=== PATIENT | male | born 2000 | race Two or more races ===

== ENCOUNTER 2025-10-05 17:50 | Emergency (ER) | payer MEDICAID, SELFPAY ==
[2025-10-05 17:51] VITALS: BMI 40.3
[2025-10-05 18:23] VITALS: BP 134/77; PULSE 90; RESP 18; TEMP 36.9; O2SAT 98
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
== END 2025-10-05 21:39 | disposition home or self-care (01) ==
PROVIDERS: Emergency Provider Emergency Medicine
DX: T14.8XXA Other injury of unspecified body region, initial encounter (principal); V49.40XA Driver injured in collision with unspecified motor vehicles in traffic accident, initial encounter; Y92.410 Unspecified street and highway as the place of occurrence of the external cause
CPT/HCPCS: 71101; 99282